=== PATIENT | female | born 1995 | race Caucasian/White ===

== ENCOUNTER 2020-07-04 13:06 | Emergency (ER) | payer BC ==
[~2020-07-04] VITALS: Ht 160 cm; Wt 65.8 kg
--- NOTE | 2020-07-04 13:23 | NUR ---
BIBS W/ HER BOYFRIEND TO ER BED 7. AAOX4. NOT IN RESP DISTRESS. AMBULATORY. CAME IN FOR NAUSEA, VOMMITING AND DIARRHEA WHICH SHE REPORTS THAT STARTED LAST NIGHT. SHE REPORTS THAT SHE STOPPED LATKING HER LEXAPRO FOR 3 DAYS FOR A BLOOD DRAW AND THINKS SHE MIGHT BE WITHDRAWING FROM THE MEDICATION. PT STARTED TAKING HER MEDICATION THIS MORNING. PT IS NOTED ANXIOUS. VS WNL. AWAITING MD FOR EVAL.
[2020-07-04] MEDS ORDERED: ONDANSETRON HCL/PF 4 MG/2 ML VIAL IVP ONE ×2 (13:30→14:30)
[2020-07-04] MEDS ORDERED: ONDANSETRON HCL/PF 4 MG/2 ML VIAL ONE ×2 (13:37→14:09)
[2020-07-04 13:48] LABS: BASOPHILS % (AUTO) 0.4 % (0.0-2.0); EOSINOPHILS % (AUTO) 1.1 % (0.0-6.0); HEMATOCRIT 43 % (33-45); HEMOGLOBIN 14.2 g/dL (11.5-14.8); LYMPHOCYTES # (AUTO) 2.8 /CMM (0.8-4.8); MEAN CORPUSCULAR HGB CONC 33 g/dl (31.0-36.0); MEAN CORPUSCULAR VOLUME 83 fL (82-100); MONOCYTES # (AUTO) 0.5 /CMM (0.1-1.30); MONOCYTES % (AUTO) 5.3 % (2.0-12.0); NEUTROPHILS # (AUTO) 6.2 /CMM (1.8-8.9); NEUTROPHILS % (AUTO) 64.2 % (43.0-81.0); PLATELET COUNT (AUTO) 273 /CMM (150-450); RED BLOOD CELL COUNT(AUTO) 5.18 MIL/uL (4.0-5.2); WHITE BLOOD COUNT (AUTO) 9.7 K/uL (4.3-11.0)
[2020-07-04 13:51] LABS: BILIRUBIN,URINE Negative (NEGATIVE); COLOR,URINE YELLOW (YELLOW); LEUKOCYTE ESTERASE ,URINE Small (NEGATIVE); NITRITE, URINE Negative (NEGATIVE); PH,URINE 5.5 (5.0-8.0); PROTEIN,URINE Negative (NEGATIVE); UGLUCOSE Negative (NEGATIVE); UROBILINOGEN,URINE 0.2 EU/dL (0.2)
[2020-07-04 13:54] LABS: BACTERIA,URINE Few /HPF (None Seen); SQUAMOUS EPITHELIAL CELL,UR Few /HPF (None Seen)
[2020-07-04 13:57] LABS: CALCIUM, SERUM 9.7 mg/dL (8.5-10.1); CREATININE 0.8 mg/dL (0.6-1.3); POTASSIUM 3.5 mmol/L (3.5-5.1)
[2020-07-04 14:01] LABS: BILIRUBIN,DIRECT 0.1 mg/dL (0.0-0.2); BILIRUBIN,TOTAL 0.4 mg/dL (0.2-1.0); TOTAL PROTEIN, SERUM 8.1 g/dL (6.4-8.2)
[2020-07-04] MEDS ORDERED: LORAZEPAM INJ 2 MG/ML VIAL ONE (14:19)
[2020-07-04] MEDS ORDERED: IV NS 0.9% 1,000 ML BAG IV ONE (14:30)
[2020-07-04] MEDS ORDERED: LORAZEPAM INJ 2 MG/ML VIAL IV ONE (14:30)
--- NOTE | 2020-07-04 15:40 | NUR ---
po challenge passed. aware
--- NOTE | 2020-07-04 15:57 | NUR ---
Patient discharged to home in stable condition. Written and verbal after care instructions given. Patient verbalizes understanding of instruction.IV removed. Catheter intact and site benign. Pressure and 4x4 applied to site. No bleeding noted. Pt ambulatory with a steady gait
[2020-07-04 15:58] VITALS: BP 113/84
== END 2020-07-04 15:58 | disposition home or self-care (01) ==
LOC: ER 13:06
DX: R11.2 Nausea with vomiting, unspecified (principal); R19.7 Diarrhea, unspecified; J45.909 Unspecified asthma, uncomplicated; F32.9 Major depressive disorder, single episode, unspecified; F10.10 Alcohol abuse, uncomplicated; F17.200 Nicotine dependence, unspecified, uncomplicated; Y90.9 Presence of alcohol in blood, level not specified
CPT/HCPCS: 36415; 80048; 80076; 81001; 83690; 84703; 85025; 87086; 96361; 96374; 96375; 96376; 99284; J2060; J2405 ×2; J7030

== ENCOUNTER 2023-05-06 00:32 | Emergency (ER) | payer BC ==
[~2023-05-06] VITALS: Ht 160 cm; Wt 73.0 kg
[2023-05-06 00:45] VITALS: TEMP 98.2
[2023-05-06] MEDS: IV NS 0.9% 1,000 ML BAG IV ONE (01:06)
[2023-05-06 01:13] LABS: BASOPHILS # (AUTO) 0.1 K/uL (0.0-0.2); BASOPHILS % (AUTO) 0.7 % (0.0-2.0); EOSINOPHILS # (AUTO) 0.5 K/uL (0.0-0.7); EOSINOPHILS % (AUTO) 3.1 % (0.0-6.0); HEMATOCRIT 42 % (33-45); LYMPHOCYTES # (AUTO) 4.7 K/uL (0.8-4.8); MEAN CORPUSCULAR HEMOGLOBIN 27 PG (26.0-33.0); MEAN CORPUSCULAR HGB CONC 34 g/dl (31.0-36.0); MEAN CORPUSCULAR VOLUME 81 fL (82-100); MONOCYTES # (AUTO) 1.7 K/uL (0.1-1.30); MONOCYTES % (AUTO) 10.1 % (2.0-12.0); NEUTROPHILS # (AUTO) 9.3 K/uL (1.8-8.9); NEUTROPHILS % (AUTO) 57.1 % (43.0-81.0); PLATELET COUNT (AUTO) 323 K/uL (150-450); RED BLOOD CELL COUNT(AUTO) 5.17 MIL/uL (4.0-5.2); RED CELL DISTRIBUTION WIDTH 12.6 % (11.5-15.0); WHITE BLOOD COUNT (AUTO) 16.3 K/uL (4.3-11.0)
[2023-05-06] MEDS: LACTULOSE 10 G/15 ML UDC (PYXIS) PO ONE (01:18)
[2023-05-06] MEDS: LACTULOSE 10 G/15 ML UDC (PYXIS) ONE (01:21)
[2023-05-06] MEDS ORDERED: KETOROLAC TROMETHAMINE 15 MG/ML VIAL ONE (01:22)
[2023-05-06 01:24] LABS: CREATININE 0.8 mg/dL (0.6-1.3); POTASSIUM 3.8 mmol/L (3.5-5.1)
[2023-05-06] MEDS: KETOROLAC TROMETHAMINE 15 MG/ML VIAL IV ONE (01:25)
[2023-05-06 01:27] LABS: ALBUMIN 3.4 g/dL (3.4-5.0); BILIRUBIN,DIRECT 0.1 mg/dL (0.0-0.2); BILIRUBIN,TOTAL 0.4 mg/dL (0.2-1.0); TOTAL PROTEIN, SERUM 7.7 g/dL (6.4-8.2)
[2023-05-06 02:26] LABS: PREGNANCY TEST URINE QUAL NEGATIVE (NEGATIVE)
[2023-05-06] MEDS ORDERED: POLY119P2 PO (02:50)
[2023-05-06 03:32] VITALS: BP 118/73; O2SAT 98
== END 2023-05-06 03:34 | disposition home or self-care (01) ==
LOC: ER 00:33
DX: K59.00 Constipation, unspecified (principal); R10.2 Pelvic and perineal pain; J45.909 Unspecified asthma, uncomplicated; F32.A Depression, unspecified; Z91.040 Latex allergy status
CPT/HCPCS: 99285; 74176; 96374; 96361; 85025; 80048; 83690; 80076; 84703; 36415; J7030; A4223; J1885

== ENCOUNTER 2024-06-09 16:15 | Emergency (ER) | payer BC ==
[~2024-06-09] VITALS: Ht 160 cm; Wt 77.1 kg
[~2024-06-09 16:15] MED LIST: POLY119P2 PO
[2024-06-09 18:24] VITALS: BP 119/83; TEMP 98.3; O2SAT 99
== END 2024-06-09 18:24 | disposition home or self-care (01) ==
LOC: ER 16:18
DX: R13.10 Dysphagia, unspecified (principal); J45.909 Unspecified asthma, uncomplicated; F17.200 Nicotine dependence, unspecified, uncomplicated; J02.9 Acute pharyngitis, unspecified; F32.A Depression, unspecified; Z91.040 Latex allergy status